=== PATIENT | female | born 1965 | race Caucasian/White ===

== ENCOUNTER 2017-01-06 06:47 | Inpatient (IN) | payer OTHER ==
[2017-01-05 15:03] VITALS: BMI 37.1
[2017-01-06] VITALS (25 sets, daily range): BP systolic 99–141; BP diastolic 57–69; PULSE 85–114; RESP 9–22; Ht 147.3 cm; Wt 76.0 kg
[~2017-01-06] VITALS: Ht 147.3 cm; Wt 76.0 kg
[~2017-01-06 06:47] MED LIST: AMIT25TA9 PO
[2017-01-06] MEDS ORDERED: PROPOFOL 200 MG INJ ONE (07:00)
[2017-01-06] MEDS ORDERED: EPHEDrine SULFATE 50 MG/5 ML SYG ONE (07:00)
[2017-01-06] MEDS ORDERED: SUCCINYLCHOLINE CHLORIDE 100 MG/5 ML SYG IV ONE (07:00)
[2017-01-06] MEDS ORDERED: ROCURONIUM 50 MG INJ ONE (07:00)
[2017-01-06] MEDS ORDERED: LIDOCAINE 2% (SDV) 5 ML INJ ONE (07:00)
[2017-01-06] MEDS ORDERED: HYDR-906 PO (07:26)
[2017-01-06] MEDS ORDERED: AMIT50TA3 PO (07:26)
[2017-01-06] MEDS ORDERED: CYCL-319 PO (07:26)
[2017-01-06] MEDS ORDERED: OMEP20CA16 PO (07:27)
[2017-01-06] MEDS ORDERED: CEFAZOLIN 2 GM/50 ML (PMX) 50 ML IVPB ONE (07:30)
--- NOTE | 2017-01-06 08:33 | HPN ---
Date/Time of Note Date/Time of Note DATE: 01/06/17 TIME: 08:33 Interval H&P Admission Note Pt. seen H&P reviewed: No system changes VIRGEN JAMIL MD Jan 06, 2017 08:33
[2017-01-06] MEDS ORDERED: POLYMYXIN/BACITRACIN 1L IRRIG ONE (08:50)
[2017-01-06] MEDS ORDERED: BUPIVACAINE 0.25% (MPF) 10 ML 10 ML VIAL ONE (08:50)
[2017-01-06] MEDS ORDERED: MIDAZOLAM 1 MG/ML 2 ML INJ ONE (09:03)
[2017-01-06] MEDS ORDERED: DEXAMETHASONE 4 MG/ML 1 ML INJ ONE (09:12)
[2017-01-06] MEDS ORDERED: ONDANSETRON 4 MG INJ ONE ×2 (09:12→11:32)
[2017-01-06] MEDS ORDERED: CEFAZOLIN 1 GM INJ ONE (09:12)
[2017-01-06] MEDS ORDERED: FAMOTIDINE 20 MG INJ ONE (09:12)
[2017-01-06] MEDS ORDERED: LABETALOL HCL 20MG INJ ONE (09:29)
[2017-01-06] MEDS ORDERED: PHENYLephrine (100 MCG/ML) 5ML SYG ONE ×3 (09:34→10:22)
[2017-01-06] MEDS ORDERED: THROMBIN 5000 UNIT VIAL ONE (10:07)
[2017-01-06] MEDS ORDERED: GELATIN SIZE 100 SPONGE ONE (10:07)
[2017-01-06] MEDS ORDERED: SUGAMMADEX SODIUM 200 MG/2 ML VIAL IV ONE (10:44)
--- NOTE | 2017-01-06 11:07 | SIPON ---
Date/Time of Note Date/Time of Note DATE: 01/06/17 TIME: 11:04 Operative Report Preoperative Diagnosis Lumbar spinal stenosis at L4 and L5 Postoperative Diagnosis Same Operation/Procedure Performed Central decompressive laminectomy at L4 Central decompressive laminectomy at L5 Medial facetectomy and foraminotomy L4-5 and L5-S1 bilaterally Cosmetic wound closure (6 cm) Lateral localizing lumbar radiographs (2) Intraoperative nerve monitoring (90 minutes) Surgeon see signature line pharmaceutical assistant Shey Zelaya MULTISKILL OPERATOR Anesthesia: general Estimated blood loss: 10 - 50 ml's Transfusion Required none Specimen Spinous processes of L4 and L5 Grafts/Implants none Complications none VIRGEN JAMIL MD Jan 06, 2017 11:07
[2017-01-06] MEDS ORDERED: HYDROmorphONE 0.2 MG/ML PCA ONE (11:27)
[2017-01-06] MEDS ORDERED: HYDROCODONE/APAP (5/325) TAB PO PRN (11:30)
[2017-01-06] MEDS ORDERED: ZOLPIDEM 5 MG TAB PO PRN (11:30)
[2017-01-06] MEDS ORDERED: BETHANECHOL 25 MG TAB PO PRN (11:30)
[2017-01-06] MEDS ORDERED: HYDROmorphONE (0.2 MG/ML) 10ML SYG IV PRN ×2 (11:30)
[2017-01-06] MEDS ORDERED: DIPHENHYDRAMINE 50 MG INJ IV PRN (11:30)
[2017-01-06] MEDS ORDERED: NALOXONE (0.4 MG/ML) INJ IV PRN (11:30)
[2017-01-06] MEDS ORDERED: TRIMETHOBENZAMIDE 100 MG/ML VIAL IM PRN (11:30)
[2017-01-06] MEDS ORDERED: DIPHENHYDRAMINE 50 MG CAP PO PRN (11:30)
[2017-01-06] MEDS ORDERED: PROCHLORPERAZINE 10 MG TAB PO PRN (11:30)
[2017-01-06] MEDS ORDERED: AL HYDROX/MG HYDROX/SIMETH 30 ML CUP PO PRN (11:30)
[2017-01-06] MEDS ORDERED: NACL 0.9% 3 ML SYG IV SCH (11:30)
[2017-01-06] MEDS ORDERED: ACETAMINOPHEN 325 MG TAB PO PRN (11:30)
[2017-01-06] MEDS ORDERED: ONDANSETRON 4 MG INJ IV PRN ×2 (11:30)
[2017-01-06] MEDS ORDERED: CEPASTAT LOZENGE MT PRN (11:30)
[2017-01-06] MEDS ORDERED: DIAZEPAM 5 MG/ML SYG IM PRN (11:30)
[2017-01-06] MEDS ORDERED: MEPERIDINE 25 MG INJ IV PRN (11:30)
[2017-01-06] MEDS ORDERED: FENTAnyl 50 MCG/ML VIAL IV PRN ×2 (11:30)
[2017-01-06] MEDS ORDERED: FENTAnyl 50 MCG/ML VIAL ONE (11:32)
[2017-01-06] MEDS ORDERED: HYDROmorphONE 2 MG/ML SYG ONE (11:32)
[2017-01-06] MEDS ORDERED: HYDROmorphONE (0.2 MG/ML) 10ML SYG IV ONE (11:33)
[2017-01-06] MEDS: HYDROmorphONE 0.2 MG/ML PCA IV SCH ×2 (12:14→21:52)
[2017-01-06] MEDS ORDERED: CEFAZOLIN 1 GM/50 ML (PMX) 50 ML IVPB ONE (12:23)
[2017-01-06] MEDS: CEFAZOLIN 1 GM/50 ML (PMX) 50 ML IVPB SCH ×2 (13:27→20:09)
--- NOTE | 2017-01-06 13:28 | RADRPT ---
PROCEDURE: Lumbar spine radiograph CLINICAL INDICATION: Procedural examination. TECHNIQUE: Single cross-table lateral radiograph of the lumbar spine. COMPARISON: None relevant listed. FINDINGS: Lavelle are seen in the L4-L5 and S1-S2 levels. Moderate L4-L5 and L5-S1 facet arthropathy. Mild 5 S 1 disc space narrowing. IMPRESSION: 1. Intraoperative radiography was provided for surgical planning and support purposes. 2. Alignment is anatomic. RPTAT: [facility] Physician Antonina Date Time Electronically viewed and signed by Physician Antonina on 01/06/2017 13:27 LG/
--- NOTE | 2017-01-06 13:29 | RADRPT ---
PROCEDURE: Lumbar spine radiograph CLINICAL INDICATION: L4-L5 laminectomy. TECHNIQUE: Single lateral radiographs of the lumbar spine. COMPARISON: Radiograph performed immediately prior to this examination. FINDINGS: Surgical equipment has been placed over the L4-L5 and L5-S1 levels. IMPRESSION: Intraoperative radiography provided for residual support purposes. RPTAT: [facility] Candice Dexter Physician Date Time Electronically viewed and signed by Candice Dexter Physician on 01/06/2017 13:29 LG/
--- NOTE | 2017-01-06 14:33 | OPR ---
DATE OF OPERATION: 01/06/2017 PREOPERATIVE DIAGNOSIS: Lumbar spinal stenosis at L4 and L5. POSTOPERATIVE DIAGNOSIS: Lumbar spinal stenosis at L4 and L5. OPERATION PERFORMED: 1. Central decompressive laminectomy at L4. 2. Central decompressive laminectomy at L5. 3. Medial facetectomy and foraminotomy, L4-5, and L5-S1 bilaterally. 4. Cosmetic wound closure (6 cm). 5. Lateral localized lumbar radiographs (2). 6. Intraoperative nerve monitoring (90 minutes). SURGEON: Ron Macias MD REGULATORY AFFAIRS INTERN: CONNOR Ruvalcaba. ANESTHESIA: General endotracheal by Dr. Carrillo. ESTIMATED BLOOD LOSS: 25 mL-none replaced. DRAINS: Two medium Hemovac drains employed. COMPLICATIONS: No complications. PERTINENT HISTORY AND PHYSICAL: This is a 51-year-old female who sustained an injury to her back in the course of her employment on September 04, 2015. She has had extensive care since that time, has remained symptomatic with persistent pain in her back radiating to her lower extremities, left greater than right, which has been unrelieved by conservative management. She has undergone a number of diagnostic studies including an MRI of the lumbar spine, which demonstrated lumbar spinal stenosis at L4 and L5. Treatment options discussed with the patient, she elected to proceed with surgery. OPERATIVE FINDINGS AT SURGERY: A moderately severe central stenosis at L4 and moderately severe lateral recess stenosis at L5 were confirmed. The baseline intraoperative nerve monitor revealed decrease in the left L4 potential of 40 percent, the left L5 potential of 40 percent. These both returned to normal at the completion of the surgery. OPERATIVE PROCEDURE: With the patient in supine position, after satisfactory induction of general endotracheal anesthesia by Dr. Carrillo, the patient was turned in the prone kneeling position onto the [place] frame. All pressure points carefully padded. The back was prepped and draped in usual sterile fashion. Athrombic pumps were applied to legs below the knees and venous stasis during and after procedure and an indwelling Ko catheter was also placed preoperatively to facilitate bladder drainage during and after the procedure. Two spinal needles were placed next to what was felt to be the L4 and L5 spinous processes, lateral radiograms taken, which confirmed anatomic localization. A 6 cm incision encountered midline over the spinous process of L4 and L5 through skin and subcutaneous tissue to the deep fascia after the skin was infiltrated with 0.25 percent Marcaine without epinephrine for postoperative analgesia. Superficial retractors were placed and hemostasis secured with electrocautery. Throughout the procedure, copious antibacterial irrigating solution used to periodically irrigate the wound. The fascia was incised in midline with a hot knife and a bilateral subperiosteal dissection carried out at L4 and L5. Deep retractors were placed and deep hemostasis secured with electrocautery. A 2nd intraoperative radiograph was taken with 2 Justus clamps placed on the spinous process of L4 and L5. This was confirmed with the 2nd x-ray. A central decompressive laminectomy at L5 and L4 was then carried out using a Adam, right-angle bone rongeur, Leksell rongeur, Kerrison punches and curettes. Ligamentum flavum was excised with sharp dissection. The operating microscope was moved into place. A medial facetectomy and foraminotomy at L4-5 and L5-S1 were carried out using a small hand ostial mallet, Kerrison punch and curettes bilaterally at L4-5 and L5-S1. Epidural hemostasis was secured with bipolar electrocautery on a low setting. The anesthesiologist was then asked to perform a Valsalva maneuver at 40 mmHg. No spinal fluid leaks were noted. The wound was then closed in layers over 2 medium Hemovac drains, one below the fascia, one above the fascia using #1 Vicryl [id number] approximating suture in deep parietal musculature and deep fascia of the back, 2-0 Vicryl subcutaneous approximating sutures in the subcu tissue and a 4-0 Vicryl subcuticular cosmetic closing suture on the skin. Dermabond and sterile compressive dressings were applied. The patient having tolerated procedure well was then turned in supine position onto her bed and extubated by Dr. Carrillo. She was transported to recovery in a satisfactory condition. At the conclusion procedure, sponge and needle counts were all correct. NEED FOR PROGRAM ADMINISTRATOR: During this spinal surgical procedure, my assistant coach was used to retract and protect the spinal nerves and dural sac. My assistant coach also employed the suction catheters to evacuate blood from the surgical field to improve visualization of the neural structures. The assistant coach was medically necessary to facilitate the completion of the surgery in a safe and expeditious manner. State of [place] regulations, as well as hospital bylaws, preclude the use of non- licensed health care personnel such as operating room technicians, to perform these functions. Throughout the procedure, neuro monitoring was carried out by [employer] including EMG, SSEP and MEP monitoring of the L3, L4, L5 and S1 nerve roots bilaterally along with spinal cord potentials. These were interpreted by a neurologist employed by [employer]. Dictated By: Ron Macias MD /[email or web address]/aryan /Document#: [id number] CC: Trae Andino MD
[2017-01-06] MEDS: DEXTROSE 5%-0.45% NACL 1,000 ML IV SCH ×2 (16:45→21:01)
--- NOTE | 2017-01-06 18:15 | PN ---
Date/Time of Note Date/Time of Note DATE: 01/06/17 TIME: 18:08 Assessment/Plan VTE Prophylaxis VTE Prophylaxis Intervention: anti-embolic stocking Lines/Catheters IV Catheter Type (from Nrsg): Saline Lock Urinary Cath still in place: Yes Reason Cath still needed: skin wounds contaminated by urine Assessment/Plan Assessment/Plan Continue with post op orders as per Dr. Macias. Stable post op Hemovac drain in place. AGRICULTURAL SERVICES DIRECTOR for pain control PT as per Dr. Macias's orders Subjective 24 Hr Interval Summary Free Text/Dictation Moderate post operative lower back pain, but very little leg pain noted. No nausea or emesis. No SOB or chest pain. Exam/Review of Systems Vital Signs Vitals Vital Signs Date Time Temp Pulse Resp B/P Pulse Ox O2 Delivery O2 Flow Rate FiO2 01/06/17 14:44 99 14 124/59 99 Nasal Cannula 01/06/17 11:48 2.0 01/06/17 11:28 98.3 Exam Constitutional: alert, oriented Head: normocephalic Eyes: EOMI, nl conjunctiva ENMT: nl external ears & nose Neck: non-tender, supple Respiratory: clear to auscultation, normal air movement Cardiovascular: nl pulses, regular rate and rhythm Gastrointestinal: non-tender, soft Musculoskeletal: nl extremities to inspection Neurological: REGISTERED NURSE PRACTITIONER II-XII intact, nl mental status, nl speech, nl strength Skin: nl turgor Results Results 24 hrs Laboratory Tests Test 01/06/17 17:48 Bedside Glucose 161 Medications Medications Current Medications Dextrose/Sodium Chloride (D5-1/2ns) 1,000 ml @ 100 mls/hr Q10H IV Last administered on 01/06/17 16:45; Admin Dose 100 MLS/HR; Start 01/06/17 at 11:01 Acetaminophen/ Hydrocodone Bitart ([place] (5/325)) 1 tab Q4H PRN PO PAIN LEVEL 1 -5; Start 01/06/17 at 11:30 Acetaminophen/ Hydrocodone Bitart 2 tab 2 tab Q4H PRN PO PAIN LEVEL 6-10; Start 01/06/17 at 11:30 Cefazolin Sodium (Ancef 1 Gm/50 ml (Pmx)) 50 ml @ 100 mls/hr Q6H IVPB Last administered on 01/06/17 13:27; Admin Dose 100 MLS/HR; Start 01/06/17 at 14:00 ; Stop 01/07/17 at 08:29 Zolpidem Tartrate (Ambien) 5 mg HS PRN PO INSOMNIA; Start 01/06/17 at 11:30 Prochlorperazine (Compazine) 10 mg Q4H PRN PO NAUSEA AND/OR VOMITING; Start at 11:30 Trimethobenzamide HCl (Tigan) 200 mg Q4H PRN IM NAUSEA AND/OR VOMITING; Start 01/06/17 at 11:30 Ondansetron HCl (Zofran Inj) 4 mg Q6H PRN IV NAUSEA AND/OR VOMITING; Start at 11:30 Al Hydrox/Mg Hydrox/Simethicone (Mag-Al Plus) 15 ml Q4H PRN PO CONSTIPATION; Start 01/06/17 at 11:30 Docusate Sodium (Colace) 100 mg BID PO ; Start 01/07/17 at 09:00 Acetaminophen (Tylenol Tab) 650 mg Q4H PRN PO TEMP GREATER THAN 101F OR SANCHEZ; Start 01/06/17 at 11:30 Ascorbic Acid (Vitamin C) 1,000 mg BID PO ; Start 01/07/17 at 09:00 Ferrous Sulfate (Ferrous Sulfate (Ec)) 325 mg TID PO ; Start 01/07/17 at 09:00 Ranitidine HCl (Zantac) 150 mg BID PO ; Start 01/06/17 at 21:00 Diazepam (Valium) 5 mg Q4H PRN PO MUSCLE SPASMS; Start 01/06/17 at 11:30 Diazepam (Valium) 5 mg Q4H PRN IM MUSCLE SPASMS; Start 01/06/17 at 11:30 Phenol (Cepastat Lozenge) 1 lozenge PRN PRN MT SORE THROAT; Start 01/06/17 at 11:30 Bethanechol Chloride (Urecholine) 25 mg PRN PRN PO UNABLE TO VOID; Start at 11:30 Diphenhydramine HCl (Benadryl) 50 mg Q6H PRN PO PRURITUS; Start 01/06/17 at 11: 30 Hydromorphone HCl (Dilaudid AGRICULTURAL SERVICES DIRECTOR) Q4PCA IV Last administered on 01/06/17t 12:14 ; Admin Dose 6 MG; Start 01/06/17 at 11:30 Naloxone HCl (Narcan) 0.2 mg Q2M PRN IV RR 8 BREATHS/MIN OR LESS; Start at 11:30 BRIGITTE FIGUEROA MD Jan 06, 2017 18:15
[2017-01-06] MEDS: RANITIDINE 150 MG TAB PO SCH (20:09)
[2017-01-07 02:24] VITALS: BP 154/73; RESP 20
[2017-01-07] MEDS: DEXTROSE 5%-0.45% NACL 1,000 ML IV SCH ×2 (02:31→17:01)
[2017-01-07] MEDS: CEFAZOLIN 1 GM/50 ML (PMX) 50 ML IVPB SCH ×2 (02:32→09:05)
[2017-01-07 06:00] VITALS: BP 116/62; PULSE 93; RESP 18
[2017-01-07 06:33] LABS: HEMATOCRIT 30.4 % (37.0-47.0); HEMOGLOBIN 8.7 g/dl (12.0-16.0)
[2017-01-07 06:53] LABS: CALCIUM 8.9 mg/dl (8.4-10.2); CREATININE 0.61 mg/dl (0.44-1.00); POTASSIUM 3.6 mmol/L (3.5-5.1)
--- NOTE | 2017-01-07 07:15 | PN ---
Date/Time of Note Date/Time of Note DATE: 01/07/17 TIME: 07:13 Assessment/Plan Lines/Catheters IV Catheter Type (from Nrs): Peripheral IV Ko in Place (from Nrsg): Yes Subjective 24 Hr Interval Summary The patient is postop day #1 following a decompressive laminectomy at L4 and L5. She is resting comfortably in bed. He is afebrile. A.m. labs demonstrate a postoperative anemia (hemoglobin 8.7). Neurovascular structures are intact distally. Her Hemovac output was 40 cc. She will be mobilized as tolerated by physical therapy. She may be discharged later today if cleared by physical therapy. Exam/Review of Systems Vital Signs Vitals Vital Signs Date Time Temp Pulse Resp B/P Pulse Ox O2 Delivery O2 Flow Rate FiO2 01/07/17 06:00 98.1 93 18 116/62 100 Nasal Cannula 2.0 Intake and Output 01/06/17 01/06/17 01/07/17 15:00 23:00 07:00 Intake Total 2000 ml 790 ml 1900 ml Output Total 500 ml 1170 ml 2940 ml Balance 1500 ml -380 ml -1040 ml Results Result Diagram: 01/07/17 0505 01/07/17 0505 VIRGEN JAMIL MD Jan 07, 2017 07:15
[2017-01-07] MEDS ORDERED: BETHANECHOL 25 MG TAB PO PRN (08:00)
[2017-01-07 08:01] VITALS: BP 105/55; RESP 20
[2017-01-07] MEDS: FERROUS SULFATE (EC) 325 MG TAB PO SCH ×3 (09:06→19:56)
[2017-01-07] MEDS: RANITIDINE 150 MG TAB PO SCH ×2 (09:06→19:56)
[2017-01-07] MEDS: DOCUSATE SODIUM 100 MG CAP PO SCH ×2 (09:06→19:56)
[2017-01-07] MEDS: ASCORBIC ACID 500 MG TAB PO SCH ×2 (09:06→19:56)
[2017-01-07] MEDS: HYDROCODONE/APAP (5/325) TAB PO PRN ×4 (09:07→21:48)
[2017-01-07 10:24] LABS: ADD UMIC NO; UR ASCORBIC ACID NEGATIVE (NEGATIVE); UR BILIRUBIN (Dip) NEGATIVE (NEGATIVE); UR BLOOD (Dip) NEGATIVE (NEGATIVE); UR CLARITY CLEAR (CLEAR); UR COLOR STRAW (YELLOW); UR GLUCOSE (Dip) NEGATIVE (NEGATIVE); UR KETONES (Dip) NEGATIVE (NEGATIVE); UR LEUKOCYTE ESTERASE (Dip) NEGATIVE Leu/ul (NEGATIVE); UR NITRITE (Dip) NEGATIVE (NEGATIVE); UR SPECIFIC GRAVITY (Dip) 1.005 (1.003-1.030); UR TOTAL PROTEIN (Dip) NEGATIVE (NEGATIVE); UR UROBILINOGEN (Dip) NEGATIVE (NEGATIVE)
[2017-01-07 14:58] VITALS: BP 115/60; RESP 18
--- NOTE | 2017-01-07 20:01 | PN ---
Date/Time of Note Date/Time of Note DATE: 01/07/17 TIME: 19:58 Assessment/Plan VTE Prophylaxis VTE Prophylaxis Intervention: ambulation Lines/Catheters IV Catheter Type (from Nrs): Saline Lock Urinary Cath still in place: No Assessment/Plan Assessment/Plan Stable post op day # 1 Discharge in AM per Dr. Macias and f/u with Dr. Macias in his office as directed Subjective 24 Hr Interval Summary Free Text/Dictation Post Op Day #1 Doing very well. No leg pain. Lower back pain is varying up to a 6/10. Passing gas and urinating well. No SOB. No chest pain. No nausea or emesis. UP and about today with PT. Hopes for AM discharge. Exam/Review of Systems Vital Signs Vitals Vital Signs Date Time Temp Pulse Resp B/P Pulse Ox O2 Delivery O2 Flow Rate FiO2 01/07/17 14:58 98.4 78 18 115/60 100 01/07/17 06:00 Nasal Cannula 2.0 Intake and Output 01/06/17 01/06/17 01/07/17 15:00 23:00 07:00 Intake Total 2000 ml 790 ml 1900 ml Output Total 500 ml 1170 ml 2940 ml Balance 1500 ml -380 ml -1040 ml Exam Hemovac drain is out. Moving toes and legs freely. Incision is clean and dry. Constitutional: alert, oriented Head: normocephalic Eyes: EOMI, nl conjunctiva ENMT: nl external ears & nose Neck: supple Respiratory: clear to auscultation, normal air movement Cardiovascular: nl pulses, regular rate and rhythm Extremities: normal pulses Neurological: BEAMER OPERATOR II-XII intact, nl mental status, nl speech, nl strength Results Result Diagram: 01/07/17 0505 01/07/17 0505 Results 24 hrs Laboratory Tests Test 01/07/17 05:05 01/07/17 05:23 01/07/17 09:00 Hemoglobin 8.7 L Hematocrit 30.4 L Sodium Level 137 Potassium Level 3.6 Chloride Level 103 Carbon Dioxide Level 25 Anion Gap 13 Blood Urea Nitrogen 8 Creatinine 0.61 Glucose Level 119 Calcium Level 8.9 Lab Scanned Report LAB Urine Color STRAW Urine Clarity CLEAR Urine pH 7.0 Urine Specific [place] 1.005 Urine Ketones NEGATIVE Urine Nitrite NEGATIVE Urine Bilirubin NEGATIVE Urine Urobilinogen NEGATIVE Urine Leukocyte Esterase NEGATIVE Urine Hemoglobin NEGATIVE Urine Glucose NEGATIVE Urine Total Protein NEGATIVE Medications Medications Current Medications Dextrose/Sodium Chloride (D5-1/2ns) 1,000 ml @ 100 mls/hr Q10H IV Last administered on 01/07/17 02:31; Admin Dose 100 MLS/HR; Start 01/06/17 at 11:01 Acetaminophen/ Hydrocodone Bitart ([place] (5/325)) 1 tab Q4H PRN PO PAIN LEVEL 1 -5; Start 01/06/17 at 11:30 Acetaminophen/ Hydrocodone Bitart ([place] (5/325)) 2 tab Q4H PRN PO PAIN LEVEL 6 -10 Last administered on 01/07/17 17:49; Admin Dose 2 TAB; Start 01/06/17 at 11 :30 Zolpidem Tartrate (Ambien) 5 mg HS PRN PO INSOMNIA; Start 01/06/17 at 11:30 Prochlorperazine (Compazine) 10 mg Q4H PRN PO NAUSEA AND/OR VOMITING; Start at 11:30 Trimethobenzamide HCl (Tigan) 200 mg Q4H PRN IM NAUSEA AND/OR VOMITING; Start 01/06/17 at 11:30 Ondansetron HCl (Zofran Inj) 4 mg Q6H PRN IV NAUSEA AND/OR VOMITING; Start at 11:30 Al Hydrox/Mg Hydrox/Simethicone (Mag-Al Plus) 15 ml Q4H PRN PO CONSTIPATION; Start 01/06/17 at 11:30 Docusate Sodium (Colace) 100 mg BID PO Last administered on 01/07/17 19:56; Admin Dose 100 MG; Start 01/07/17 at 09:00 Acetaminophen (Tylenol Tab) 650 mg Q4H PRN PO TEMP GREATER THAN 101F OR SANCHEZ; Start 01/06/17 at 11:30 Ascorbic Acid (Vitamin C) 1,000 mg BID PO Last administered on 01/07/17 19:56 ; Admin Dose 1,000 MG; Start 01/07/17 at 09:00 Ferrous Sulfate (Ferrous Sulfate (Ec)) 325 mg TID PO Last administered on 19:56; Admin Dose 325 MG; Start 01/07/17 at 09:00 Ranitidine HCl (Zantac) 150 mg BID PO Last administered on 01/07/17 19:56; Admin Dose 150 MG; Start 01/06/17 at 21:00 Diazepam (Valium) 5 mg Q4H PRN PO MUSCLE SPASMS; Start 01/06/17 at 11:30 Diazepam (Valium) 5 mg Q4H PRN IM MUSCLE SPASMS; Start 01/06/17 at 11:30 Phenol (Cepastat Lozenge) 1 lozenge PRN PRN MT SORE THROAT Last administered on 01/06/17 22:03; Admin Dose 1 LOZENGE; Start 01/06/17 at 11:30 Diphenhydramine HCl (Benadryl) 50 mg Q6H PRN PO PRURITUS Last administered on 22:02; Admin Dose 50 MG; Start 01/06/17 at 11:30 Hydromorphone HCl (Dilaudid SURVEY CHIEF) Q4PCA IV Last administered on 01/06/17 21:52 ; Admin Dose 6 MG; Start 01/06/17 at 11:30 Naloxone HCl (Narcan) 0.2 mg Q2M PRN IV RR 8 BREATHS/MIN OR LESS; Start at 11:30 Bethanechol Chloride (Urecholine) 25 mg PRN PRN PO UNABLE TO VOID Last administered on 01/07/17 09:06; Admin Dose 25 MG; Start 01/07/17 at 08:00 BRIGITTE FIGUEROA MD Jan 07, 2017 20:01
[2017-01-07 20:22] VITALS: BP 115/58; RESP 20
[2017-01-07] MEDS: DIAZEPAM 5 MG TAB PO PRN (22:49)
[2017-01-08] MEDS: DEXTROSE 5%-0.45% NACL 1,000 ML IV SCH ×2 (03:01→12:51)
--- NOTE | 2017-01-08 07:25 | PN ---
Date/Time of Note Date/Time of Note DATE: 01/08/17 TIME: 07:23 Assessment/Plan Lines/Catheters IV Catheter Type (from Nrsg): Saline Lock Ko in Place (from Nrsg): No Subjective 24 Hr Interval Summary She is postop day #2 from lumbar decompression L4 and L5. She has been ambulating with physical therapy but is not yet cleared for discharge. Preoperative pain is improving, neurovascular structures are intact distally. Incisional pain is well controlled. Vital signs are stable, she is afebrile. Hemovac drain was removed yesterday and incision is healing well. She may be discharged later today if cleared by physical therapy and internal medicine. Discharge medications and precautions reviewed with patient. Exam/Review of Systems Vital Signs Vitals Vital Signs Date Time Temp Pulse Resp B/P Pulse Ox O2 Delivery O2 Flow Rate FiO2 01/07/17 20:22 97.7 90 20 115/58 96 01/07/17 06:00 Nasal Cannula 2.0 Intake and Output 01/07/17 01/07/17 01/08/17 15:00 23:00 07:00 Intake Total 1250 ml 950 ml Output Total 900 ml 1100 ml Balance 350 ml -150 ml Results Result Diagram: 01/07/17 0505 01/07/17 0505 ALCIRA JACOBS Jan 08, 2017 07:25
[2017-01-08] MEDS: HYDROCODONE/APAP (5/325) TAB PO PRN ×3 (08:16→17:13)
[2017-01-08] MEDS: DIAZEPAM 5 MG TAB PO PRN ×3 (08:16→17:13)
[2017-01-08 08:30] VITALS: BP 110/58; RESP 20
[2017-01-08 08:51] LABS: BASOPHIL # 0.1 10^3/ul (0.0-0.1); BASOPHILS % 0.5 % (0.0-2.0); EOSINOPHILS # 0.2 10^3/ul (0.0-0.5); EOSINOPHILS % 1.8 % (0.0-7.0); HEMATOCRIT 33.4 % (37.0-47.0); HEMOGLOBIN 9.8 g/dl (12.0-16.0); LYMPHOCYTES # 3.1 10^3/ul (0.8-2.9); MEAN CORPUSCULAR HGB CONC 29.3 g/dl (32.0-37.0); MEAN CORPUSCULAR VOLUME 78.2 fl (82.0-101.0); MEAN PLATELET VOLUME 9.9 fl (7.4-10.4); MONOCYTE # 0.8 10^3/ul (0.3-0.9); MONOCYTES % 7.7 % (0.0-11.0); NEUTROPHIL # 5.9 10^3/ul (1.6-7.5); NEUTROPHILS % 58.2 % (39.0-77.0); PLATELET COUNT 310 10^3/UL (140-415); RED BLOOD COUNT 4.27 10^6/ul (4.20-5.40); RED CELL DISTRIBUTION WIDTH 19.7 % (11.5-14.5); WHITE BLOOD COUNT 10.1 10^3/ul (4.8-10.8)
[2017-01-08] MEDS: RANITIDINE 150 MG TAB PO SCH (09:37)
[2017-01-08] MEDS: ASCORBIC ACID 500 MG TAB PO SCH (09:37)
[2017-01-08] MEDS: DOCUSATE SODIUM 100 MG CAP PO SCH (09:37)
[2017-01-08] MEDS: FERROUS SULFATE (EC) 325 MG TAB PO SCH ×2 (09:37→12:19)
[2017-01-08 15:18] VITALS: BP 100/56; RESP 20
[2017-01-08 19:00] VITALS: BP 117/54; RESP 18
== END 2017-01-08 20:05 | disposition home health service (06) | DRG 517 ==
LOC: REC 06:47 → EDSTATUS 07:00 → MS1 16:27
PROVIDERS: ADMIT Orthopaedic Surgery; ATTEND Orthopaedic Surgery
PROC: 01NB0ZZ Release Lumbar Nerve, Open Approach (ICD-10-PCS; principal; 2017-01-06 09:30)
DX: M48.06 Spinal stenosis, lumbar region (principal); D64.9 Anemia, unspecified
CPT/HCPCS: 72020; 80048; 81003; 82962; 84703; 85014; 85018; 85025; 86850; 86900; 86901; 86920; 97110; 97116; 97161; 97530; J0690; J1100; J1170; J2250; J2370; J2405; J3010; J7042; J7999

== ENCOUNTER 2017-11-17 19:25 | Emergency (ER) | END 2017-11-17 21:57 | disposition home or self-care (01) ==